=== PATIENT | female | born 1935 | race Caucasian/White ===

== ENCOUNTER 2024-03-06 14:00 | Inpatient (IN) | payer OTHER, SELFPAY ==
[2024-03-06] VITALS (12 sets, daily range): BP systolic 87–172; BP diastolic 63–140
--- NOTE | 2024-03-06 09:51 | ED.GENMED ---
History of Present Illness
General
Chief Complaint: Heart Rate Problem
Source: patient
Time Seen by Provider: 03/06/24 09:36
History of Present Illness
History of Present Illness:
88-year-old female with past medical history of atrial fibrillation, GERD, tachybradycardia syndrome presenting to the emergency department for evaluation after experiencing sudden onset palpitations that began this morning with symptoms continuing
presently and accompanied with some mild shortness of breath although patient notes that shortness of breath is now resolved. Patient states that she had been recently wearing a Holter monitor at request of her hospice superintendent, Dr. Burk and Dr. Aleman
based out of [facility], where she was told she had this tachybradycardia syndrome and that she may need a pacemaker but this would be unable to be completed until after the holiday season. Patient states she was instructed that if she
had any further symptoms she should come directly to the hospital for further evaluation. Patient denies any fevers or infectious symptoms, chest pain, diaphoresis, exertional dyspnea, orthopnea, lower extremity edema or any other concerns
presently. Patient is anticoagulated on Eliquis which she states she only started this past , did not take this medication this morning.
Past History
Past History
ED Past Medical History: Arrthythmia and GERD
ED Past Surgical History: Cholecystectomy and Gynecological
Social History
Tobacco: Non-smoker
Alcohol: None
Drug: None
Personal:
Living: with family
Review of Systems
Review of Systems
All Other Systems: ROS reviewed and negative except as documented in HPI and ROS
Phy Exam
Physical Exam
Physical Exam:
GENERAL: Alert , in no apparent distress
EYE: clear conjunctiva
NECK: Supple
ENT: o/p clr, mmm.
CARDIAC: Irregularly irregular, rate controlled, occasional PVCs seen on telemetry
LUNGS: Clear breath sounds bilaterally, no acute respiratory distress,
ABDOMEN: Soft, without focal tenderness, no r/g, no cvat
NEUROLOGICAL: Alert and oriented
SKIN: Warm and dry, skin intact.
MUSCULOSKELETAL: well perfused.
PSYCH: Normal and appropriate interaction.
Scores
Heart Failure Risk
Heart Failure Risk Score: Not Applicable
Heart Score for Chest Pain Patients
STEMI patient?: Not applicable
Withdrawal Assessment of Alcohol
Withdrawal Assessment Completed?: Not applicable
Course
Orders/Labs/Results
Orders:
Orders
03/06/24 Breakfast
NPO
Allow oral meds: Yes
Allow clear liquids: No
03/06/24 09:17
EKG [Electrocardiogram (*1)] Urgent
Reason for Study: Bradycardia / Tachycardia
EKG- Treatment ONCE
03/06/24 09:42
Basic Metabolic Panel Urgent
Complete Blood Count/With Diff Urgent
Magnesium Urgent
NT-proBNP Urgent
TSH Urgent
Troponin I Urgent
03/06/24 12:03
CeFAZolin 1 GRAM [Ancef] 1 gram 0.9% Sod Chloride 250 ml Irr [Nss Irrigation Bottle] 250 ml IRRIG CATH
CeFAZolin 2 GRAM [Ancef] 2 grams in 10 ml IV CATH
03/06/24 12:04
INT (Intravenous Needle Therapy) As Directed
Comment: #20 gauge IV catheter
Notify MD As Directed
Notify physician if: no consent on chart
OR/Surgery Prep As Directed
Type of Prep: cleanse patient with Chlorhexidine gluconate 2%
Surgical Procedure As Directed
Surgical Procedure: DC PPM - [employer]
03/06/24 13:36
Propofol [Diprivan] 60 ml .ROUTE .STK-MED
03/06/24 13:41
Admit/Transfer Patient As Directed
Co-Sign Provider:
Level of Care: Inpatient admission
Assign to:: Telemetry
Physician / Group: bettie
Diagnosis: trachybradycardia syndrome
Reason for Telemetry: Other
Other Reason for Telemetry: tachybradycardia syndrome
Date to Stop Telemetry: 03/08/24
Time to Stop Telemetry: 11:00
Reason for Hospitalization: tach bradycardia syndrome
Expected length of stay greater than two midnights?: Yes
ELOS- Estimated Length of Stay in days: 3
I certify the patient meets the requirements for IP care: Yes
PRN Pain Medication Management As Directed
May give lesser potent ordered pain med per pt: Yes
preference::
Protocol:: Medication orders for pain may be administered in a
manner that supports deferring to patient preference
when the pt is:
- Requesting an ordered lesser potent pain medication.
Least to most potent pain medications are defined
as: acetaminophen < NSAID < tramadol < opioids
(morphine, oxycodone, hydromorphone).
- Requesting a lesser dose of the same medication IF
ORDERED.
- Requesting a less intrusive route of administration
if both routes are prescribed by the provider (PO <
IV).
03/06/24 13:42
Code Status As Directed
Resuscitation Status: Full Code
03/08/24 11:00
DC Protocol for Telemetry ONCE
Abnormal Lab Results
03/06/24
09:42
MCV 80.0 L fL
(81.0-99.0)
MCH 26.3 L pg
(27.0-31.0)
MCHC 32.9 L g/dL
(33.0-37.0)
Absolute Monos (auto) 0.7 H 10^3/uL
(0.1-0.6)
Monocytes % 10.2 H %
(1.7-9.3)
Glucose 157 H mg/dl
(70-99)
03/06/24 09:42
03/06/24 09:42
Vital Signs
Initial and Last Documented VS:
Initial Vital Signs
Temp Pulse Resp BP Pulse Ox
97.8 F 83 18 172/108 97
03/06/24 09:23 03/06/24 09:23 03/06/24 09:23 03/06/24 09:23 03/06/24 09:23
Last Documented Vital Signs
Temp Pulse Resp BP Pulse Ox
97.7 F 81 18 137/76 97
03/06/24 12:55 03/06/24 12:55 03/06/24 12:01 03/06/24 11:00 03/06/24 12:55
MDM/Problems Addressed
Differential Diagnosis Includes:
Atrial fibrillation with rapid ventricular rate, tachybradycardia syndrome, thyroid disorder, electrolyte disorder, no symptoms to suggest infectious etiology
MDM/Problems Addressed:
88-year-old female presenting to the emergency department for evaluation of palpitations that began this morning. This has been an ongoing issue over the last few months. Patient reportedly was wearing a Holter monitor within the last month and
was told by her hospice superintendent that she has tachybradycardia syndrome and may need a pacemaker for treatment. States felt similarly this morning which is what prompted her to come to the ER today. EKG done in triage does show atrial fibrillation at
a rate under 110 bpm with a PVC. During my exam patient's heart rate persistently in the low 80s to low 90s but remains in A-fib. Will check labs and discuss with cardiology about potential treatment options and disposition planning.
Chronic conditions affecting care: Arrhythmia
Acute Exacerbation and/or Progression of Chronic Illness: Arrhythmia
*Pulse Oximetry
Patient hypoxic: no
*EKG
Heart Rate: 105
Rate: tachycardiac
Rhythm: a-fib
[place]: normal axis
Ischemia: non-specific ST changes
*Integrated Program Teacher Interpretation
Rate: normal
Rhythm: a-fib
*Critical Care Note
Total Time (30-74mins, 75-104mins- exclusive of procedures): Not Applicable
Data Reviewed
Review of Other/Old Records Reveals: Testing
Source: patient and records
Patient Management
Discussion with other providers: Hospitalist and Governor Assembler
Escalation/DeEscalation of care consider admission/obs:
Case discussed with cardiology who will come to the ER to evaluate patient and determine disposition planning.
Cardiology plans to take patient for today. Will admit to hospitalist service who accepts for continued evaluation and treatment.
ED Attending Note
-
Portions of this chart may have been created with voice recognition software.� Occasional wrong word or��sound alike� substitutions may have occurred due to the inherent limitations of voice recognition software.
Discharge Plan
Departure
Patient Disposition: Admit
Date of Disposition: 03/06/24
Time of Disposition: 12:50
Presentation/result/management discussed w/ accepting MD/DO: Hospitalist
Discharge Problem:
Tachy-gilberto syndrome
Prescriptions:
No Action
acetaminophen [Tylenol] 325 mg Tablet
650 mg PO DAILYPRN PRN (Reason: MILD APIN)
cyanocobalamin (vitamin B-12) 1,000 mcg Tablet
1,000 mcg PO DAILY
Theragen Tablet
1 tab PO DAILY
omeprazole 40 mg Capsule,Delayed Release(Dr/Ec)
40 mg PO DAILY
ferrous sulfate 325 mg (65 mg iron) Tablet
325 mg PO DAILY
metformin 1,000 mg Tablet
1,000 mg PO BID
digoxin 125 mcg (0.125 mg) Tablet
125 mcg PO DAILY
rosuvastatin [Crestor] 40 mg Tablet
40 mg PO HS
cholecalciferol (vitamin D3) [Vitamin D3] 25 mcg (1,000 unit) Tablet
25 mcg PO DAILY
Eliquis 2.5 mg Tablet
2.5 mg PO BID
vitamin E 268 mg (400 unit) Capsule
268 mg PO DAILY
Referrals:
Herminia Pang MD [Family Provider] -
Interventions
Interventions:
*Risk Screen - Suicide Last Done: 03/06/24 09:23
*General Assessment Last Done: 03/06/24 09:23
*Neglect/Abuse Screening Last Done: 03/06/24 09:23
*ED COVID-19 Vaccine History Last Done: 03/06/24 09:23
ED- Cardiac Assessment Last Done: 03/06/24 09:38
ED- Pulmonary Assessment Last Done: 03/06/24 09:38
Discharge Date and Time
Print Language: TAMAZIGHT
[2024-03-06 09:53] LABS: % Basophils 1.2 % (0-2); % Eosinophils 4.3 % (0-6); % Immature Granulocytes 0.4 % (0-0.5); % Lymphocytes 27.7 % (20.5-51.1); % Monocytes 10.2 % (1.7-9.3); % Neutrophils 56.2 % (42.2-75.2); Absolute Basophils 0.1 10^3/uL (0-0.2); Absolute Eosinophils 0.3 10^3/uL (0-0.7); Absolute Lymphocytes 1.9 10^3/uL (1.2-3.4); Absolute Monocytes 0.7 10^3/uL (0.1-0.6); Absolute Neutrophils 3.9 10^3/uL (1.4-6.5); Hematocrit 38.3 % (37.0-47.0); Hemoglobin 12.6 g/dL (12.0-16.0); Mean Corp Hgb Conc. 32.9 g/dL (33.0-37.0); Mean Corpuscular Hgb 26.3 pg (27.0-31.0); Mean Platelet Volume 9.1 fL (7.4-10.4); Nucleated Red Blood Cells % 0 %; Platelet Count 210 10^3/uL (130-400); Red Blood Cell Count 4.79 10^6/uL (4.20-5.40); Red Cell Dist. Width 13.9 % (11.5-14.5); White Blood Cell Count 6.9 10^3/uL (4.8-10.8)
[2024-03-06 10:09] LABS: Blood Urea Nitrogen 15 mg/dl (7-17); Calcium 9.9 mg/dl (8.4-10.2); Carbon Dioxide 28 mmol/L (22-30); Chloride 100 mmol/L (98-107); Glucose 157 mg/dl (70-99); Magnesium 1.7 mg/dl (1.6-2.3); Potassium 4.4 mmol/L (3.5-5.1); Sodium 139 mmol/L (135-145); eGFR > 60.00
[2024-03-06 10:19] LABS: NT-proBNP 236 pg/ml; Troponin I < 0.012 ng/ml
--- NOTE | 2024-03-06 11:49 | CON.CAR ---
Addendum entered and electronically signed by Charlie Luis, 03/06/24 14:16:
I saw and examined the patient.
The Electrical Lineworker's note was reviewed and I agree with the note.
Comment:
General: No Apparent Distress and Comfortable
HEENT: Normocephalic, Anicteric and Moist Mucous Membranes
Respiratory: Clear and Non Labored Respirations
Cardiac: S1/S2 and Irregular Rhythm
GI: Soft, Non Tender, Non Distended and Normal Bowel Sounds
Musculoskeletal: No Clubbing, No Cyanosis and No Edema
Skin: Warm and Dry
Neuro: AO x 3
A/P as below
Patient with symptomatic PAF with episodes of tachybrady syndrome which included a 3.3s and 4.2s pause (symptomatic). Additionally, patient with two discrete episodes of near syncope and falls associated with AF conversion to SR. Patient not on rate
controlling agents. In the setting of patient's symptomatic PAF with tachybrady syndrome, sick sinus syndrome, and symptomatic irrevesible bradycardia, she would benefit from pacemaker implant. Patient had been referred by her primary textile science technician
for pacemaker. Regarding pacemaker implant, we discussed pacemaker indications and device implant in detail. For implant there is an approximate 1:1000 risk of MA/stroke/ and a 1% risk of pneumothorax/tamponade/infection/bleeding. We also
discussed post procedure implant restrictions including positions to avoid with implant arm for first six weeks after implant as well as driving restrictions. I took time to answer all questions. I spent time discussing the procedure with the
patient and her daughters. Patient and her daughters verbalized understanding of procedure, indications, benefits, and risks. Plan to proceed with implant. Patient consented. Patient to undergo rib series XR prior to procedure in the setting of
recent fall.
Original Note:
Consultation
Consultation Request
Date/Time Consultation Performed: 03/06/24
Requesting Provider: Chu Vora PA-C
Performing Provider: Vita Benavides PA-C for Dr. Luis
Reason for Consultation: PPM
Medical History
-
Chief Complaint: tachybrady syndrome
History of Present Illness:
Patient is an 88-year-old female with past medical history of paroxysmal atrial fibrillation, hyperlipidemia, CAD with history of bare-metal stent to mid�distal LAD in 2010, prior GI bleeding, DJD who had undergone cardiac monitoring 02/14 -
02/22/2024 during which she was noted to have 2 pauses 1 being a 4.2-second conversion pause from A-fib to sinus rhythm, one 3.3 seconds during A-fib with 23% burden of paroxysmal atrial fibrillation, no high-grade AV heart block seen. Then 02/25
she had a presyncopal event and fall. She was seen by Dr. Bain as EP consultation 03/04 and felt to have tachybradycardia syndrome and was referred to ER here for pacemaker placement. Patient without subsequent presyncopal or syncopal events
since 02/25. She does have some continued left rib pain from her recent fall, however feels as though this is likely improving, although still does cause her discomfort at times. She does report feeling poorly in atrial fibrillation with decreased
stamina, increased irritability, and dyspnea on exertion. She denies history of cardioversion, antiarrhythmic drug therapy, or ablation for her atrial fibrillation. She denies history of known thyroid disease. She last ate last evening, and last
dose of Eliquis was 12/25 AM.
PMH:
Sick sinus syndrome/tachybradycardia syndrome
4.2-second conversion pause on cardiac monitoring 02/2024
Presyncopal event/fall 02/26/2024
Paroxysmal atrial fibrillation
Hyperlipidemia
CAD status post BMS to mid�distal LAD in 2010
Prior GI bleeding
DJD
Remote former smoker
Past Medical History
Past Medical History: Other (in HPI)
Social History
Tobacco: Former Smoker
Alcohol: None
Living: Alone
Family History
Family History: Other (daughter passed at 61 of heart attack)
Allergies / Home Medications
Allergy/AdvReac Type Severity Reaction Status Date / Time
codeine Allergy Shortness Verified 03/06/24 09:27
of Breath
�Medication �Instructions �Recorded �Confirmed �Type
acetaminophen 325 mg tablet 650 mg PO DAILYPRN PRN MILD APIN 03/06/24 03/06/24 History
(Tylenol)
apixaban 2.5 mg tablet (Eliquis) 2.5 mg PO BID 03/06/24 03/06/24 History
cholecalciferol (vitamin D3) 25 25 mcg PO DAILY 03/06/24 03/06/24 History
mcg (1,000 unit) tablet (Vitamin
D3)
cyanocobalamin (vitamin B-12) 1,000 mcg PO DAILY 03/06/24 03/06/24 History
1,000 mcg tablet
digoxin 125 mcg (0.125 mg) tablet 125 mcg PO DAILY 03/06/24 03/06/24 History
ferrous sulfate 325 mg (65 mg 325 mg PO DAILY 03/06/24 03/06/24 History
iron) tablet
metformin 1,000 mg tablet 1,000 mg PO BID 03/06/24 03/06/24 History
omeprazole 40 mg capsule,delayed 40 mg PO DAILY 03/06/24 03/06/24 History
release
rosuvastatin 40 mg tablet (Crestor) 40 mg PO HS 03/06/24 03/06/24 History
therapeutic multivitamin 1 tab PO DAILY 03/06/24 03/06/24 History
vitamin E 268 mg (400 unit) capsule 268 mg PO DAILY 03/06/24 03/06/24 History
Review of Systems
-
History Source: Patient and Family
All other systems: Negative unless noted
Physical Exam
Vital Signs
Temp Pulse Resp BP Pulse Ox
97.8 F 86 23 137/76 97
03/06/24 09:23 03/06/24 11:00 03/06/24 11:00 03/06/24 11:00 03/06/24 09:23
Lab Results
03/06/24 09:42
03/06/24 09:42
Troponin I < 0.012 ng/ml 03/06/24 09:42
Bwh-E-Cncdukozifq Pept 236 pg/ml 03/06/24 09:42
Physical Exam
General: No Apparent Distress and Comfortable
HEENT: Normocephalic, Anicteric and Moist Mucous Membranes
Respiratory: Clear and Non Labored Respirations
Cardiac: S1/S2 and Irregular Rhythm
GI: Soft, Non Tender, Non Distended and Normal Bowel Sounds
Musculoskeletal: No Clubbing, No Cyanosis and No Edema
Skin: Warm and Dry
Neuro: AO x 3
Impression / Plan
-
Primary Bench Shear Operator: Dr. Burk
Assessment:
Symptomatic sick sinus syndrome/tachybradycardia syndrome
4.2-second conversion pause on cardiac monitoring 02/2024
Presyncopal event/fall 02/26/2024
Paroxysmal atrial fibrillation
Hyperlipidemia
CAD status post BMS to mid�distal LAD in 2010
Prior GI bleeding
DJD
Remote former smoker
ECHO 02/29/24: EF 60%, grade 1 diastolic dysfunction, no significant valvular disease, mildly atherosclerotic aortic root
Plan:
-Patient presents with evidence of symptomatic sick sinus syndrome/tachybradycardia syndrome with paroxysmal A-fib, as well as 4.2-second conversion pause on cardiac monitoring, as well as subsequent presyncopal event/fall.
-N.p.o. for pacemaker today. Procedure explained to patient and she is agreeable to proceed
-Last dose of Eliquis confirmed to be 12/25 AM. Hemoglobin stable at 12.6
-Recent echo as above
-Check TSH
-Currently in rate controlled atrial fibrillation on tele in ER, as well as by admission EKG reviewed by me. She has been on digoxin which was stopped earlier this week in the setting of recent above events. Would consider for rate control versus
rhythm control status post pacemaker placement
-Resume Eliquis postprocedure when able
-She does report some ongoing rib pain in the setting of her fall. Would consider rib series x-ray, however patient does state pain appears to be improving.
-Discussed with patient and family at bedside
Data Reviewed
-
EKG: Tracing Personally Visualized and interpreted
Medical Tests (Nuc Med, Echo etc): Report Reviewed by me
Labs: Labs Reviewed by me
Old Records: Reviewed
--- NOTE | 2024-03-06 13:20 | HPS.HSE ---
Family Physician
-
Family Physician: Herminia Pang
Chief Complaint
-
palpitation and sob
History of Present Illness
88-year-old female with past medical history of atrial fibrillation, GERD, tachybradycardia syndrome presenting to the emergency department for evaluation of palpitations associated with sob since las night. Patient states that she had been
recently wearing a Holter monitor at request of her grab jack man, Dr. Burk and Dr. Aleman based out of [facility], where she was told she had this tachybradycardia syndrome, she was also noted to have couple pauses and that she may need
a pacemaker but this would be unable to be completed until after the holiday season. her digoxin has been on hold. patient had a fall couple weeks ago due to lightheadedness and she fell on her left side. since then she has left sided pain from
underneath her breast to the left lower back. pain is actually getting better. all workup at that time was negative for any acute fracture. denied fever, chills, congestion, cough. denied chest pain. denied abdominal pain,n,v,d. denied dysuria or
hematuria.
patient was evaluated by cardiology. plant to get pacemaker today.
Medical History
Past Medical History
Past Medical History: Reports Other
Additional Past Medical History:
Hyperlipidemia
A-fib,
Hypertension, coronary artery disease
GERD iron deficiency anemia
Type 2 diabetes hiatal hernia
Past Surgical History: Reports Other
Additional Past Surgical History:
Total knee replacement
Coronary artery stent
Cataract surgery
Social History
Tobacco: Non-smoker
Alcohol: Occasional
Drug: None
Personal: Single
Living: Alone
Family History
Family History: Not pertinent
Allergies / Home Medications
Allergies reflects when Allergies were last updated in [facility].
Home Medications with original date entered in [facility]
Allergy/Medication List:
Allergies
Allergy/AdvReac Type Severity Reaction Status Date / Time
codeine Allergy Shortness Verified 03/06/24 09:27
of Breath
Home Medications
acetaminophen 325 mg tablet (Tylenol) 650 mg PO DAILYPRN PRN MILD APIN 03/06/24
apixaban 2.5 mg tablet (Eliquis) 2.5 mg PO BID 03/06/24
cholecalciferol (vitamin D3) 25 mcg (1,000 unit) tablet (Vitamin D3) 25 mcg PO DAILY 03/06/24
cyanocobalamin (vitamin B-12) 1,000 mcg tablet 1,000 mcg PO DAILY 03/06/24
digoxin 125 mcg (0.125 mg) tablet 125 mcg PO DAILY 03/06/24
ferrous sulfate 325 mg (65 mg iron) tablet 325 mg PO DAILY 03/06/24
metformin 1,000 mg tablet 1,000 mg PO BID 03/06/24
omeprazole 40 mg capsule,delayed release 40 mg PO DAILY 03/06/24
rosuvastatin 40 mg tablet (Crestor) 40 mg PO HS 03/06/24
therapeutic multivitamin 1 tab PO DAILY 03/06/24
vitamin E 268 mg (400 unit) capsule 268 mg PO DAILY 03/06/24
Review of Systems
-
Constitutional: Reports No Symptoms
EENT: Reports No Symptoms
Respiratory: Reports No Symptoms and Trouble Breathing
Cardiac: Reports No Symptoms
Abdomen/GI: Reports No Symptoms
: Reports No Symptoms
Musculoskeletal: Reports No Symptoms
Skin: Reports No Symptoms
Neurological: Reports No Symptoms
Endocrine: Reports No Symptoms
Hematologic/Lymphatic: Reports No Symptoms
Psych: Reports No Symptoms
Physical Exam
Vital Signs
Vital Signs
Temp Pulse Resp BP Pulse Ox
97.7 F 81 18 137/76 97
03/06/24 12:55 03/06/24 12:55 03/06/24 12:01 03/06/24 11:00 03/06/24 12:55
Physical Exam
General: Well Developed, Well Nourished and No Apparent Distress
HEENT: NormoCephalic, Moist mucous membranes and Atraumatic
Respiratory: Clear
Cardiac: S1/S2 and Regular Rhythm; No Murmur or Rub
GI: Soft, Non Tender, Non Distended and Normal Bowel Sounds; No Organomegaly
Rectal: Deferred by Provider
Musculoskeletal: No Clubbing, No Cyanosis and No Edema
Skin: No Rash
Neuro: AO x 3 and Nonfocal/grossly intact
Psych: Calm
Laboratory Results
-
03/06/24 09:42
03/06/24 09:42
Laboratory Results
Troponin I < 0.012 ng/ml 03/06/24 09:42
Data Reviewed
-
Lab Data: Labs Reviewed by me
Impression/Plan
-
# Tachybradycardia syndrome
#Paroxysmal atrial fibrillation
-For pacemaker today
-Cardiology consulted
-EKG with A-fib with RVR with PVCs
-Hold Eliquis
-Hold digoxin
#left sided chest/ribs pain
-will obtain x ray with ribs
# Iron deficiency anemia
-Ferrous sulfate continued
# Type 2 diabetes
-Sliding scale
-Carb controlled diet when able to eat
-Hold metformin
# GERD
-PPI continued
#Hyperlipidemia
-Crestor continued
#CAD status post BMS to mid�distal LAD in 2010
# DVT prophylaxis
-SCD
#CODE STATUS
-Full code
--- NOTE | 2024-03-06 14:11 | W.PN.UPDATE ---
Update Note
Progress Note Update
This is an addendum to the H&P written by Nia Argueta on 03/06/2024. Patient seen and examined independently with OYSTER BUYER.
88-year-old female past medical history of paroxysmal atrial fibrillation, GERD, presenting with recent 2 episodes of falls without syncope (for giving and on 02/24) with subsequent Holter monitor investigation with discovery of
tachybradycardia syndrome. Digoxin was subsequently held. She has been having intermittent palpitations and dizziness. Outpatient pacemaker was recommended.
Patient with left rib pain after the fall.
Patient asymptomatic currently. Hemodynamically normal. Check chest x-ray with left rib to rule out fracture given pain. NPO for pacemaker today. Hold Eliquis, continue to hold digoxin. Hold metformin.
--- NOTE | 2024-03-06 14:52 | ITS.CL.PACE ---
Flexo Press Operator - Pacemaker Implant
Pacemaker Implant
Procedure Report:
Primary Care Doctor: Herminia Pang MD
Primary Vp Legal Affairs: Ronald Burk MD
Procedure Date: 03/06/2024
Name of procedure:
1. Placement of a dual-chamber pacemaker with left bundle area pacing lead for conduction system pacing
2. Subclavian venography
History:
1. Patient is a very pleasant 88-year-old female with a past medical history of paroxysmal atrial fibrillation, hypertension, CAD, hypercholesterolemia, anemia, diabetes mellitus type 2, GERD, sick sinus syndrome, tachybradycardia syndrome,
symptomatic bradycardia, near syncope/falls associated with sick sinus syndrome and irreversible bradycardia.
2. Please refer to H&P for complete history.
Indication:
Symptomatic irreversible bradycardia
Tachybrady syndrome with pauses
Near-syncope syncope/falls
Sick sinus syndrome
Methods:
After informed consent was obtained, the patient was brought to the EP laboratory in a postabsorptive, nonsedated state. Peripheral IV access was established. Prophylactic antibiotics were administered prior to incision. Continuous ECG, blood
pressure, and pulse oximetry were initiated. Cardioversion patch electrodes were placed on the patient's chest and back. A grounding patch was applied to the skin. Sedation was administered by anesthesia services.
In order to define the extrathoracic portion of the subclavian vein and exclude significant venous obstruction or anomalous anatomy, subclavian venography was performed prior to the procedure. Using the patient's left peripheral IV, contrast was
injected and images were recorded. The left subclavian vein and SVC were found to be widely patent.
The left chest was prepared and draped in a sterile fashion. A time-out was performed. Local anesthesia was injected in the subcutaneous tissue in the infraclavicular area. An incision was made medial to the deltopectoral groove. The subcutaneous
tissue was dissected the level of the prepectoral fascia. A subcutaneous pocket was created. Under fluoroscopic guidance and with the assistance of the images from the venogram, 2 separate venipunctures were made using micropuncture and modified
Seldinger technique. These were performed in the extrathoracic portion of the subclavian vein. Guidewires were passed and two peel-away sheaths were placed, and used to advance leads into the circulation.
Fluoroscopy was used to determine likely anatomic site for left bundle branch pacing. The Medtronic C315 sheath was used to deliver the Medtronic 3830 Selectsecure pacing lead with the helix exposed just exposed from the sheath tip during continuous
monitoring when pacemapping the septum during gentle clockwise rotation to obtain a paced QRS morphology of a W pattern in lead V1. Once the suspected optimal site was identified, lead deployment was performed with several rapid rotations as paced
QRS morphology was intermittently monitored until a paced QRS complex in lead V1 demonstrated development of an R wave (qR or rSR). Unipolar pacing impedance dropped by approximately 100-200 ohms suggesting it had reached the left ventricular
subendocardial. Stable VEgm injury current is present throughout lead position and at end of case. Final unipolar pacing impedance is 1200 Ohms. Unipolar pacing threshold is stable at 0.50 V @ 0.4 ms. The patient had pre-existing narrow QRS. Final
conduction system paced QRS complex duration is 90 ms, LVAT is 63 ms, and peak V5 -> peak V1 timing is 34 ms. The C315 sheath was slit under fluoroscopy ensuring lead position and stability.
Next, the right atrial lead was positioned in the right atrial appendage. Adequate sensing and pacing parameters were found, and no diaphragmatic stimulation was seen with high-output pacing. Both sheaths were split, and the leads were secured to
the fascia with Ethibond ties.
The pocket was flushed with antibiotic solution and hemostasis was assured. The generator was connected to the leads and placed inside the pocket. The device was sutured to the fascia. Antibiotic envelope was used. Floseal was applied. The wound
was closed with 3 running layers of absorbable suture, and steri-strips were applied. Dressing applied over steri-strips in standard fashion.
Following the procedure, the patient was taken to the recovery area in stable condition. A chest x-ray to be obtained post procedure as routine.
Lead parameters and device programming:
- RA Lead (Medtronic, Model 5076, # [id number]): Sensing 6.6 mV, Pacing threshold 1.0 V at 0.4 ms, Imp 418 ohm
- RV Lead (Medtronic, Model 3830, #[id number]): Sensing 20.0 mV, Pacing threshold 0.75 V at 0.4 ms, Imp 741 Ohm
- Device: Medtronic, Model W1 DR 01 pacemaker (# [id number]), programmed AAIR�DDDR, mode switch on, lower rate 60, upper tracking rate 120 ppm
Conclusions:
1. Successful placement of a dual-chamber pacemaker with conduction system pacing (LBBAP)
2. Subclavian venography
Recommendations:
1. Admit
2. chest x-ray Goldie maza express in a.m.
3. IV antibiotics while the patient is admitted.
4. OK to resume home medications as indicated; plan to start oral anticoagulation 03/07/2024 PM if site/patient stable in a.m.
5. Pressure dressing to be removed in AM, aquacell to remain until wound check
6. Follow-up will be arranged in the office in 7-10 days post-discharge; patient has follow-up with primary mental health case manager, Dr Ronald Burk, on 03/14/2023 where incision check will be performed
Charlie Luis DO, FAC
Clinical Cardiac Polarity Tester
cc: Ronald Burk MD; Herminia Pang MD
[2024-03-06 18:26] LABS: Glucose - Point of Care 123 mg/dl (70-99)
[2024-03-06] MEDS: TYLENOL 650 MG PO ×2 (18:37→22:55)
--- NOTE | 2024-03-06 19:23 | PTCARENOTE ---
Addendum entered by Maisha Singh RN 03/06/24 19:41:
Tylenol po was given for LCW pain.
Original Note:
received patient from laborer operator,had LCW pacemaker insertion, DDDR 60 - 120, Acuseal, pressure dsg. and immobilizer intact. patient is very drowsy but can answer questions appropriately,3 daughters are at bedside. Monitor placed, NSR,(laborer operator didnot
do hand off report), VSS, Dr. drake came to bedside to talk with patient. oriented to room and surroundings.
--- NOTE | 2024-03-06 21:00 | PTCARENOTE ---
Received patient at change of shift. Patient awake, drowsy (from procedure), and oriented sitting in bed, visiting with family. Left chest wall site clean, dry, and intact-- no hematoma or ecchymosis. Sling on. BP 148/70, NSR 70s-80s, 97% on 2 L.
Discussed plan of care for evening. Patient verbalized understanding and agreed to call care team when wanting to get out of bed. Call miller within reach.
[2024-03-06 21:41] LABS: Glucose - Point of Care 248 mg/dl (70-99)
[2024-03-06] MEDS: ANCEF 5 IV (22:14)
[2024-03-06] MEDS: CRESTOR 40 MG PO (22:14)
[2024-03-07 03:46] VITALS: BP 135/66
[2024-03-07 04:52] LABS: Hematocrit 37.4 % (37.0-47.0); Hemoglobin 12.3 g/dL (12.0-16.0); Mean Corp Hgb Conc. 32.9 g/dL (33.0-37.0); Mean Corpuscular Hgb 26.4 pg (27.0-31.0); Mean Corpuscular Volume 80.3 fL (81.0-99.0); Mean Platelet Volume 10.3 fL (7.4-10.4); Platelet Count 206 10^3/uL (130-400); Red Blood Cell Count 4.66 10^6/uL (4.20-5.40)
[2024-03-07 05:15] LABS: Blood Urea Nitrogen 14 mg/dl (7-17); Calcium 9.5 mg/dl (8.4-10.2); Carbon Dioxide 26 mmol/L (22-30); Chloride 104 mmol/L (98-107); Estimated Creatinine Clearance 44 ml/min; Glucose 126 mg/dl (70-99); Magnesium 1.7 mg/dl (1.6-2.3); Potassium 3.9 mmol/L (3.5-5.1); Sodium 140 mmol/L (135-145); eGFR > 60.00
[2024-03-07] MEDS: ANCEF 5 IV (05:54)
--- NOTE | 2024-03-07 07:48 | W.PN.CARDCBS ---
Addendum entered and electronically signed by Charlie Luis DO 03/07/24 12:19:
I saw and examined the patient.
The Shear Tender's note was reviewed and I agree with the note.
Comment:
GEN: No distress, awake but groggy, oriented x3
HEENT: supple, anicteric, mmm, eomi
LUNGS: CTA B/L, no wheezes/rales
CV: Reg, S1/S2, no murmur
ABD: soft, BS+, NT/ND
EXT: No cyanosis, clubbing, edema
NEURO: Gross non-focal
SKIN: Warm, pink, dry. No rash. L chest site with mild juju-incisional swelling and tenderness to palpation, but soft
Telemetry demonstrates sinus rhythm, occasionally paced V sense
Chest x-ray no evidence of pneumothorax, stable dual-chamber pacemaker
Currently expressed demonstrating appropriate device function stable pacing threshold, sensing, impedance values, and battery life
A/P as below
Patient doing well status post dual-chamber pacemaker with conduction system pacing
Start metoprolol succinate 25 mg daily
Start Eliquis 03/09/2024 in a.m.
Patient have follow-up with primary machine bobbin winder Dr. Ronald Burk as scheduled (has incision check 03/14/2023 with him)
Ambulate
Stable for DC from CV standpoint later today
Original Note:
Today's Communication / Plan
-
s/p PPM 03/06
ambulate
toprol 25mg daily
resume eliquis 03/09 AM
OP cardiac follow up arranged
ok for DC to home later today
Impression / Plan
-
Primary Protective Service Specialist: Dr. Burk
Assessment:
Symptomatic sick sinus syndrome/tachybradycardia syndrome
4.2-second conversion pause on cardiac monitoring 02/2024
Presyncopal event/fall 02/26/2024
s/p Medtronic DC PPM 03/06/24
Paroxysmal atrial fibrillation
Hyperlipidemia
CAD status post BMS to mid�distal LAD in 2010
Prior GI bleeding
DJD
Remote former smoker
ECHO 02/29/24: EF 60%, grade 1 diastolic dysfunction, no significant valvular disease, mildly atherosclerotic aortic root
Plan:
-Patient presented with evidence of symptomatic sick sinus syndrome/tachybradycardia syndrome with paroxysmal A-fib, as well as 4.2-second conversion pause on cardiac monitoring, as well as subsequent presyncopal event/fall on 02/25. Rib series
without evidence of rib fracture
-s/p Medtronic DC PPM placement 03/06/24
-with some mild juju-incisional swelling and tenderness, will follow. continue pain mgmt
-Hemoglobin stable at 12.3. plan to resume eliquis 03/09 AM
-Recent echo as above
-TSH WNL
-currently in SR on review of tele and EKG 03/07. toprol was started post PPM placement.
-ambulate patient after breakfast
-ok for DC to home later today from cardiac standpoint
-OP cardiac follow up arranged
Progress Note - Protective Service Specialist
Subjective
Date of Service: March 07, 2024
reports some juju incisional tenderness
Objective
Labs:
03/07/24 04:10
03/07/24 04:09
Labs
Hgb 12.3 g/dL (12.0-16.0) 03/07/24 04:10
Hct 37.4 % (37.0-47.0) 03/07/24 04:10
Plt Count 206 10^3/uL (130-400) 03/07/24 04:10
Sodium 140 mmol/L (135-145) 03/07/24 04:09
Potassium 3.9 mmol/L (3.5-5.1) 03/07/24 04:09
BUN 14 mg/dl (7-17) 03/07/24 04:09
Creatinine 0.7 mg/dL (0.6-1.0) 03/07/24 04:09
Glucose 126 mg/dl (70-99) H 03/07/24 04:09
Troponins
03/06/24
09:42
Troponin I < 0.012
Vital Signs and I&O:
Vital Signs
Temp Pulse Resp BP Pulse Ox
97.8 F 65 18 135/66 97
03/07/24 03:48 03/07/24 04:30 03/07/24 03:48 03/07/24 03:46 03/07/24 03:48
Vital Signs
Temp Pulse Resp BP Pulse Ox
97.8 F 65 18 135/66 97
03/07/24 03:48 03/07/24 04:30 03/07/24 03:48 03/07/24 03:46 03/07/24 03:48
Physical Exam
Physical Exam
GEN: No distress, awake but groggy, oriented x3
HEENT: supple, anicteric, mmm, eomi
LUNGS: CTA B/L, no wheezes/rales
CV: Reg, S1/S2, no murmur
ABD: soft, BS+, NT/ND
EXT: No cyanosis, clubbing, edema
NEURO: Gross non-focal
SKIN: Warm, pink, dry. No rash. L chest site with mild juju-incisional swelling and tenderness to palpation, but soft
[2024-03-07 07:57] VITALS: BP 122/73
[2024-03-07 08:37] LABS: Glucose - Point of Care 130 mg/dl (70-99)
[2024-03-07] MEDS: PROTONIX 40 MG PO (09:23)
[2024-03-07] MEDS: FEOSOL 325 MG PO (09:24)
[2024-03-07] MEDS: TOPROL XL 25 MG PO (09:24)
[2024-03-07] MEDS: TYLENOL 650 MG PO ×2 (09:30→13:57)
--- NOTE | 2024-03-07 10:42 | CM ---
Reviewed chart. Met with Mrs. Rivers to review discharge plans. She states prior to admission she resides alone in a first floor apartment with three steps to enter and then four steps to get to her apartment. She state prior to admission she was
independent with ambulation and adls. She states she does not have any DME in the home. She states she has a prescription plan with her insurance and currently uses [facility], but she is in the process of switching to mail order. She states her
daughters reside nearby and they will be checking on her. Medical work-up in progress. The discharge plan is to return home with family support when medically stable.
[2024-03-07 10:49] LABS: Glycohemoglobin (HgbA1c) 7.6 % (4.0-5.6)
[2024-03-07 11:29] VITALS: BP 124/104
[2024-03-07 11:31] VITALS: BP 116/57
[2024-03-07 13:04] LABS: Glucose - Point of Care 125 mg/dl (70-99)
--- NOTE | 2024-03-07 13:11 | W.PN.HOSP.TC ---
Today's Communication/Plan
-
Discharge
Assessment / Plan
Assessment / Plan
Gen-AAOx3, NAD
HEENT-NC, AT, anicteric, clear oral mm
Neck-supple
CV-reg, no M, +S1/S2
Lungs-clear B/L
Abd-soft, NT, ND
Ext-no edema
Musculoskeletal-no cyanosis, clubbing
Skin-warm and dry, mild bruising of the left posterior arm
Neuro-grossly non-focal
Psych-calm, cooperative
Sick sinus syndrome -symptomatic. Stable after permanent pacemaker placement 03/06. No pneumothorax on chest x-ray. Metoprolol started by cardiology.
Cardiology recommends discharge home later today with outpatient follow-up.
Did have a syncopal event on February 25. Sustained trauma to the left side of her chest. No rib fractures noted on x-ray.
Paroxysmal atrial fibrillation -resume Eliquis on 03/09 as per cardiology.
DM 2 without hyperglycemia -hemoglobin A1c 7.6%. Glucose 126 this morning. Resume metformin on discharge.
GERD
Essential hypertension -stable.
CAD -history of bare-metal stent to the mid to distal LAD in 2010.
History of GI bleeding
Hyperlipidemia -rosuvastatin.
Full code
Dispo -discharge later today. Outpatient follow-up.
32 minutes spent in discharge process.
Anticipated Discharge: Today
Subjective/Interval History
-
Date of Service: March 07, 2024
Patient seen and examined. Complaining of left sided rib pain.
Objective Data
-
Labs:
Laboratory Results
03/07/24 03/07/24
04:09 04:10
WBC 8.0
Hgb 12.3
Hct 37.4
Plt Count 206
Sodium 140
Potassium 3.9
Chloride 104
Carbon Dioxide 26
BUN 14
Creatinine 0.7
Glucose 126 H
Calcium 9.5
Vital Signs:
Vital Signs
Temp Pulse Resp BP Pulse Ox
98.1 F 71 18 116/57 95
03/07/24 11:28 03/07/24 12:00 03/07/24 11:28 03/07/24 11:31 03/07/24 11:28
Review of Systems
-
History Source: Patient
All other systems: Reviewed and negative
--- NOTE | 2024-03-07 13:26 | W.DS.TRANS ---
DC Summary - Active Directory Administrator
-
Discharge Instructions:
Discharge Diagnosis/Procedures Sick sinus syndrome, pacemaker implant
Diet Low Cholesterol,Diabetic, Carb Controlled
Activity Other activity
Additional Activity See device sheet
Driving Restrictions No driving for 1 week
Bathing Restrictions OK to Shower
Instructions:
Stand-Alone Forms: DC Inst - Implanted Device
Changes to Home Medications: Yes
Discharge Medications:
DC Medications w/original date entered in [facility]
acetaminophen 325 mg tablet (Tylenol) 650 mg PO DAILYPRN PRN MILD APIN 03/06/24
apixaban 2.5 mg tablet (Eliquis) 2.5 mg PO BID 03/06/24
cholecalciferol (vitamin D3) 25 mcg (1,000 unit) tablet (Vitamin D3) 25 mcg PO DAILY 03/06/24
cyanocobalamin (vitamin B-12) 1,000 mcg tablet 1,000 mcg PO DAILY 03/06/24
ferrous sulfate 325 mg (65 mg iron) tablet 325 mg PO DAILY 03/06/24
metformin 1,000 mg tablet 1,000 mg PO BID 03/06/24
omeprazole 40 mg capsule,delayed release 40 mg PO DAILY 03/06/24
rosuvastatin 40 mg tablet (Crestor) 40 mg PO HS 03/06/24
therapeutic multivitamin 1 tab PO DAILY 03/06/24
vitamin E 268 mg (400 unit) capsule 268 mg PO DAILY 03/06/24
metoprolol succinate 25 mg tablet,extended release 24 hr 25 mg PO DAILY #30 tabs 03/07/24
Home Medication Changes
Hold digoxin until you speak with your civil project engineer.
Pending Results: No
--- NOTE | 2024-03-07 16:07 | PTCARENOTE ---
Pt seen by Michael and Janelle and Vita Benavides CERAMIST. Telemetry and IV device removed. Discharge instructions reviewed with pt and her daughter regarding activity and driving restrictions, wound care, medications and their possible side effects,
reporting cares and concerns and follow up appts. Good understanding verbalized. Pt escorted out via wheelchair wearing immobilizer and was discharged to home.
== END 2024-03-07 14:40 | disposition home or self-care (01) | DRG 244 ==
LOC: IVU 14:00
PROVIDERS: Nurse Practitioner Adult Health; Physician Assistant Medical; Registered Nurse; ADMITTING PHYSICIAN Hospitalist; ATTENDING PHYSICIAN Hospitalist; EMERGENCY PHYSICIAN Emergency Medicine; FAMILY PHYSICIAN Student in an Organized Health Care Education/Training Program; OTHER PHYSICIAN Internal Medicine Cardiovascular Disease
PROC: 0JH606Z Insertion of Pacemaker, Dual Chamber into Chest Subcutaneous Tissue and Fascia, Open Approach (ICD-10-PCS; 2024-03-06)
PROC: 02HK3JZ Insertion of Pacemaker Lead into Right Ventricle, Percutaneous Approach (ICD-10-PCS; 2024-03-06)
PROC: 02H63JZ Insertion of Pacemaker Lead into Right Atrium, Percutaneous Approach (ICD-10-PCS; 2024-03-06)
DX: I49.5 Sick sinus syndrome (principal); I48.0 Paroxysmal atrial fibrillation; K21.9 Gastro-esophageal reflux disease without esophagitis; E11.9 Type 2 diabetes mellitus without complications; I10 Essential (primary) hypertension; I25.10 Atherosclerotic heart disease of native coronary artery without angina pectoris; E78.00 Pure hypercholesterolemia, unspecified; D50.9 Iron deficiency anemia, unspecified; Z88.5 Allergy status to narcotic agent; Z79.01 Long term (current) use of anticoagulants; Z79.84 Long term (current) use of oral hypoglycemic drugs; Z95.5 Presence of coronary angioplasty implant and graft; Z87.891 Personal history of nicotine dependence; Z96.659 Presence of unspecified artificial knee joint
CPT/HCPCS: 33208; 71045; 71101; 80048; 82962; 83036; 83735; 83880; 84443; 84484; 85025; 85027; 93005; 99285; C1769; C1892

== ENCOUNTER 2024-12-29 08:25 | Day surgery (SDC) | payer OTHER, SELFPAY ==
[2024-12-17 12:34] VITALS: BMI 29.3
[2024-12-17 13:08] LABS: Hematocrit 35.6 % (37.0-47.0); Hemoglobin 11.2 g/dL (12.0-16.0); Mean Corp Hgb Conc. 31.5 g/dL (33.0-37.0); Mean Corpuscular Volume 83.6 fL (81.0-99.0); Nucleated Red Blood Cells % 0 %; Platelet Count 226 10^3/uL (130-400); Red Cell Dist. Width 14.0 % (11.5-14.5)
[2024-12-17 13:11] LABS: INR 1.14; PT 15.2 Sec (11.4-14.6)
[2024-12-17 13:13] LABS: ALT (SGPT) 20 U/L (0-35); AST (SGOT) 27 U/L (14-36); Albumin 4.5 g/dl (3.5-5.0); Alkaline Phosphatase 81 U/L (38-126); Blood Urea Nitrogen 19 mg/dl (7-17); Calcium 9.6 mg/dl (8.4-10.2); Carbon Dioxide 30 mmol/L (22-30); Chloride 104 mmol/L (98-107); Estimated Creatinine Clearance 33 ml/min; Glucose 103 mg/dl (70-99); Magnesium 1.9 mg/dl (1.6-2.3); Potassium 4.5 mmol/L (3.5-5.1); Sodium 140 mmol/L (135-145); Total Protein 7.8 g/dl (6.3-8.2); eGFR 54.87
[2024-12-29 09:02] VITALS: BP 134/68
[2024-12-29 09:09] LABS: Glucose - Point of Care 121 mg/dl (70-99)
[2024-12-29 09:14] VITALS: BMI 25.8
== END 2024-12-29 11:00 | disposition home or self-care (01) ==
LOC: CATH 08:25
PROVIDERS: ATTENDING PHYSICIAN Internal Medicine Cardiovascular Disease; FAMILY PHYSICIAN Student in an Organized Health Care Education/Training Program; OTHER PHYSICIAN Internal Medicine Cardiovascular Disease
DX: I48.0 Paroxysmal atrial fibrillation (principal); Z53.09 Procedure and treatment not carried out because of other contraindication
CPT/HCPCS: 82962; 36415; 75572; 80053; 83735; 85025; 85610; 86850; 86900; 86901; 93005; Q9967

== ENCOUNTER 2025-02-27 07:01 | Day surgery (SDC) | payer OTHER, SELFPAY ==
[2025-02-10 10:59] VITALS: BMI 29.6
[2025-02-10 12:13] LABS: Hematocrit 38.2 % (37.0-47.0); Hemoglobin 12.6 g/dL (12.0-16.0); Mean Corp Hgb Conc. 33.0 g/dL (33.0-37.0); Mean Corpuscular Volume 84.0 fL (81.0-99.0); Nucleated Red Blood Cells % 0 %; Platelet Count 236 10^3/uL (130-400); Red Cell Dist. Width 13.7 % (11.5-14.5)
[2025-02-10 12:25] LABS: INR 1.14; PT 14.7 Sec (11.4-14.6)
[2025-02-10 12:26] LABS: ALT (SGPT) 20 U/L (0-35); AST (SGOT) 28 U/L (14-36); Albumin 4.4 g/dl (3.5-5.0); Alkaline Phosphatase 85 U/L (38-126); Blood Urea Nitrogen 12 mg/dl (7-17); Calcium 9.6 mg/dl (8.4-10.2); Carbon Dioxide 31 mmol/L (22-30); Chloride 101 mmol/L (98-107); Estimated Creatinine Clearance 35 ml/min; Glucose 175 mg/dl (70-99); Magnesium 1.8 mg/dl (1.6-2.3); Potassium 3.8 mmol/L (3.5-5.1); Sodium 138 mmol/L (135-145); Total Protein 7.7 g/dl (6.3-8.2); eGFR > 60.00
--- NOTE | 2025-02-26 10:50 | W.SUR.PREOP ---
Pre-Operative Surgical Note
-
As stated in H&P, the patient was recently diagnosed with an E. Coli UTI and was started on 1 weeks worth of antibiotic therapy per PCP.
Initial symptoms were foul swelling urine and increased frequency.
Foul smell as resolved. Frequency has improved.
She denies urinary burning and pelvic discomfort.
Last dose of antibiotic is scheduled for later today.
Given all of this, the patient can safely proceed as planned with her procedure tomorrow.
[2025-02-27] VITALS (14 sets, daily range): BP systolic 124–147; BP diastolic 49–85; BMI 29.6
[2025-02-27 08:36] LABS: Glucose - Point of Care 118 mg/dl (70-99)
--- NOTE | 2025-02-27 11:38 | ITS.CL.ABL ---
Music Video Producer - Ablation
Ablation
Procedure Report:
Primary Community Service Patrol Officer: Dr Ronald Burk
Procedure Date: 02/27/2025
Patient History:
Patient is a pleasant 89-year-old female with a past medical history significant for CAD with PCI in 2010, sick sinus syndrome status post dual-chamber pacemaker 02/2024, symptomatic persistent atrial fibrillation, hypertension, hyperlipidemia,
diabetes mellitus type 2, arthritis.
See H&P for complete details.
Indication:
Symptomatic persistent atrial fibrillation
Intolerance to antiarrhythmic medical therapy
Arrhythmia Specific History:
Prior Medical Therapies for Rate and Rhythm Control:
X Beta-janelle
X Calcium channel-janelle
X Amiodarone
[ ] Dronederone
[ ] Sotalol
[ ] Flecainide
[ ] Dofetilide
[ ] Options limited by bradycardia
[ ] Options limited by comorbid renal disease
Prior Procedural Therapies for AF/AFL:
[ ] Cardioversion
[ ] Pulmonary Vein Isolation
[ ] Posterior Wall Isolation
[ ] Additional lines (Specify)
[ ] Surgical Sellers-MAZE or PVI (Specify)
Procedure Performed:
X AF ablation procedure (07247) -- includes LA/CS pacing, trans-septal, 3D mapping, + ICE
[ ] +IV drug (05682)
[ ] +Other Arrhythmia (95732)
X +Other AF Line/ablation (87514) x2 -- floor line, roof line, posterior wall isolation
Risks and expected recovery has been explained in detail. Alternative options have been explored, and in a shared-decision making fashion we have decided that this was the most appropriate procedure.
Method
NPO status confirmed. Grounding pad applied. Defibrillator pads applied. Continuous surface ECG, pulse oximetry, and blood pressure were monitored. Procedure was performed under general anesthesia, with anesthesia services.
Both groins were clipped, prepped with Chloraprep, and draped in sterile fashion. Time out was called. Local anesthesia administered. The right and left femoral veins were accessed for catheter placement, using ultrasound guidance (images saved to
record), micro-puncture needle/wire, and modified seldinger technique. 3 sheaths were placed. The following catheters were used:
[ ] Tacticath SE (D/F Curve) ablation catheter
X Viewflex 9Fr ICE catheter
X Inquiry decapolar 6Fr diagnostic catheter
[ ] CRD Hex 6Fr
X FlexCath Contour 10 Fr with PulseSelect PFA Catheter
X Advisor HD Grid Mapping Catheter, SE
[ ] Acuson AcuNav 8 Fr ICE catheter
[ ]Other: [ ]
Intracardiac ultrasound (ICE) was carefully advanced into the right atrium to guide sheath placement over a J-wire, catheter placement, guide trans-septal puncture, identify potential complications, identify anatomic structures and ensure proper
contact between ablation catheter and tissue.
Heparin was given prior to trans-septal puncture. Heparin was given to achieve and maintain a target ACT of 300-400 seconds throughout the procedure.
Trans-septal access was performed under ICE guidance and fluoroscopy. Careful attention was paid to the chronic pacemaker leads in order to avoid them during transseptal. The trans-septal puncture was performed with a SafeSept wire through a
Brockenbrough needle assembly through the steerable sheath. The wire was visualized as it entered the LSPV. The Brockenbrough needle and safe step wire were then removed and the J-wire was advanced into the left superior pulmonary vein as
visualized by intracardiac ultrasound and fluoroscopy. System could not be advanced through thick intra-atrial septum. Dr Viviana Preston then assisted with transseptal. Dr Preston using ICE and fluoroscopy, advanced the J wire into the RSPV. The
system advanced carefully under ICE guidance and fluoroscopy into the LA. The J wire and sheath dilator were removed under negative pressure with the sheath in the midpoint of the left atrium. LA pressure was measured and recorded. ICE review
demonstrated no change to pre-procedure structures, no identified pericardial effusion.
ICE and 3D mapping was performed to identify relevant cardiac structures. A careful 3D map was created to assess for regions of low-voltage and abnormal electrogram signals using HD grid mapping catheter and PulseSelect catheter. Additional mapping
was performed as outlined below.
PulseSelect catheter was advanced over J-wire to the ostium of each vein. Pulmonary vein isolation was performed with ostial and antral lesions in a circumferential manner. Contact was visualized via EAM, ICE, fluoroscopy, and EGM signals.
After accomplishing pulmonary venous isolation, mapping identified additional areas likely to be extra PV contributors to atrial fibrillation. These areas demonstrated patchy low voltage as well as complex fractionated electrograms. These areas can
be sites for the formation of rotors which can drive and maintain atrial fibrillation. These areas are known to be significant contributors to initiation and perpetuation of atrial fibrillation.
Additional energy applications/additional ablation sets targeted extra PV contributors to atrial fibrillation.
Targets for additional PFA ablation included: LA posterior wall targeted with pulsed electric field energy isolating the posterior wall of the left atrium. Posterior wall isolation was performed by anchoring the J-wire within the pulmonary vein and
placing the PulseSelect catheter in contact posterior wall as visualized by aforementioned methods.
After ablation of the posterior wall, targets remained including:
- Inferior LA floor
- Anterior LA roof
- The ridge of tissue between the left atrial appendage and the left sided pulmonary veins (Ligament of Rohan)
These areas were ablated using pulsed electric field energy eliminating the extra PV contributors to atrial fibrillation.
Following completion of ablation lesions, a post-ablation voltage/activation map was performed in atrial pacing. Entrance and exit block were confirmed for each vein and the posterior wall.
Catheter and sheath were removed from the left atrium and post-ablation intracardiac echo evaluation was consistent with pre-ablation with no changes and no pericardial effusion and there is no left atrial thrombus or left ventricle thrombus seen.
Electrophysiology study was performed. Hemostasis was obtained with figure of 8 stitch for each groin and with manual pressure. Protamine was used for reversal.
Estimated Blood Loss
5mL
Complications
None
Fluoroscopy: 24.1 minutes; 145.9 mGy; DAP 17.4
LA Pressure: Pre 4 mmHg
Baseline Intervals:
Rhythm: APVS
AZ: 177 ms
QRS: 106 ms
QT: 391 ms
QTc: 391 ms
A-A: 1000 ms
R-R: 1000 ms
Post-Procedure Intervals:
AZ: 175 ms
QRS: 95 ms
QT: 432 ms
QTc: 434 ms
A-A: 990 ms
R-R: 990 ms
AVWB: 510 ms
AVNERP: 600/450 ms
AERP: 600/250 ms
Recommendations
- Bedrest with straight-leg precautions as ordered
- Admit with anticipate discharge home tomorrow after overnight observation
- Resume home medications as indicated
- Ok to resume anticoagulation tonight if patient and groin sites stable
- Plan for follow-up in office as scheduled
Charlie Luis DO, FACC, FHRS
Clinical Cardiac Electrical Engineering Technologist
cc: Dr Herminia Pang; Dr Ronald Burk
[2025-02-27 13:10] LABS: ACT-LR - POC 329 Seconds (116-155)
[2025-02-27 13:35] LABS: ACT-LR - POC 321 Seconds (116-155)
[2025-02-27 13:50] LABS: ACT-LR - POC 340 Seconds (116-155)
[2025-02-27 14:13] LABS: ACT-LR - POC 384 Seconds (116-155)
[2025-02-27 14:30] LABS: ACT-LR - POC 398 Seconds (116-155)
[2025-02-27 14:35] LABS: ACT-LR - POC 342 Seconds (116-155)
[2025-02-27 14:58] LABS: ACT-LR - POC 141 Seconds (116-155)
[2025-02-27 15:47] LABS: Glucose - Point of Care 143 mg/dl (70-99)
--- NOTE | 2025-02-27 16:06 | CM ---
pt is prev indep, lives alone in a 1 story home with 5 steps to enter. no dc planning needs noted. plan is for dc to home when medically stable.
--- NOTE | 2025-02-27 16:33 | PTCARENOTE ---
Received the patient fro the computer lab aide in her bed. The patient is aaox3. Her vital signs are stable. NSR with occasional A-pacing is noted on the monitor. Her BL groin dressings are c/d/i. She has no complaints of pain or discomfort. I instructed her
on her activity restrictions and expected oob time. Her call miller is within reach.
[2025-02-27 19:42] LABS: Glucose - Point of Care 163 mg/dl (70-99)
[2025-02-27] MEDS: ELIQUIS 5 MG PO (20:24)
[2025-02-27 21:57] LABS: Glucose - Point of Care 260 mg/dl (70-99)
[2025-02-27] MEDS: CRESTOR 40 MG PO (22:19)
--- NOTE | 2025-02-28 00:37 | PTCARENOTE ---
assumed care of patient at the change of shift. AAOx3. [place]. b/l groin sutures removed with no issues. dressing CDI. patient ambulated to the bathroom- steady on her feet. denies any lightheadedness/dizziness. SR on tele with Apacing- 60s-70s. bp
stable. attempted to wean patient off of oxygen. RA- 85-88%. at times 95 on RA. placed patient back on 2L. diminished lung sounds. shallow breathing. denies any sob. reviewed plan of care with patient and verbalized understanding. call miller within
reach. comfort measures provided.
[2025-02-28 03:08] VITALS: BP 103/58
[2025-02-28 04:11] LABS: Hematocrit 33.4 % (37.0-47.0); Hemoglobin 10.9 g/dL (12.0-16.0); Mean Corp Hgb Conc. 32.6 g/dL (33.0-37.0); Mean Corpuscular Volume 83.7 fL (81.0-99.0); Platelet Count 192 10^3/uL (130-400); Red Cell Dist. Width 13.9 % (11.5-14.5)
[2025-02-28 04:33] LABS: Blood Urea Nitrogen 16 mg/dl (7-17); Calcium 9.0 mg/dl (8.4-10.2); Carbon Dioxide 25 mmol/L (22-30); Chloride 105 mmol/L (98-107); Estimated Creatinine Clearance 45 ml/min; Glucose 146 mg/dl (70-99); Magnesium 1.7 mg/dl (1.6-2.3); Potassium 4.3 mmol/L (3.5-5.1); Sodium 136 mmol/L (135-145); eGFR > 60.00
--- NOTE | 2025-02-28 07:05 | W.PN.CARDCBS ---
Addendum entered and electronically signed by Stanley Jay MD 02/28/25 09:18:
Patient seen, interviewed and examined by me.
Well-appearing, no acute distress
Regular rate and rhythm with normal S1 and S2, no S3 no S4. There is a grade 1/6 apical holosystolic murmur and no rubs. PMI is normally placed.
Lungs are clear to auscultation bilaterally without wheezes rales or rhonchi.
Abdomen soft nontender nondistended with normoactive bowel sounds
Extremities show trace pretibial edema bilaterally no clubbing or cyanosis.
Neurologic exam is grossly nonfocal.
status post PVI for symptomatic atrial fibrillation.
She feels well
Telemetry shows no postablation arrhythmias
She remained hemodynamically stable
Groin site without hematoma or bruit, no bleeding.
-Continue Verapamil 120mg daily and Toprol 25mg daily. HR and BP stable.
-Continue Eliquis 5mg BID
-Remains on O2, will get up walking and hopefully will improve
-OK for discharge today, 02/28 as long as O2 stable on RA
-Follow up with Dr. Burk has been arranged.
Original Note:
Today's Communication / Plan
-
Continue Eliquis, verapamil, metoprolol
Appears well post PVI
Follow up arranged
If O2 stable on RA, ok for discharge
Follow up arranged
Impression / Plan
-
Hospital Admissions Clerk: Dr. Burk
Impression:
Persistent atrial fibrillation
s/p PVI 02/28/2025
Chronic OAC with Eliquis
CAD
s/p BMS of LAD 2010
SSS
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
h/o GIB
DM2
HTN
HLD
Remote tobacco abuse
Plan:
-Patient has known persistent atrial fibrillation and underwent PVI 02/28/2025 w/ Dr. Luis.
-Doing well overnight. No complaints this AM. Groin sites stable.
-Remains in SR on review of tele.
-Continue Verapamil 120mg daily and Toprol 25mg daily. HR and BP stable.
-Continue Eliquis 5mg BID
-Remains on O2, will get up walking and hopefully will improve
-OK for discharge today, 02/28 as long as O2 stable on RA
-Follow up with Dr. Burk has been arranged.
Progress Note - Hospital Admissions Clerk
Subjective
Date of Service: February 28, 2025
No complaints.
Objective
Labs:
02/28/25 03:14
02/28/25 03:14
Labs
Hgb 10.9 g/dL (12.0-16.0) L 02/28/25 03:14
Hct 33.4 % (37.0-47.0) L 02/28/25 03:14
Plt Count 192 10^3/uL (130-400) 02/28/25 03:14
PT 14.7 Sec (11.4-14.6) H 02/10/25 11:14
INR 1.14 02/10/25 11:14
Sodium 136 mmol/L (135-145) 02/28/25 03:14
Potassium 4.3 mmol/L (3.5-5.1) 02/28/25 03:14
BUN 16 mg/dl (7-17) 02/28/25 03:14
Creatinine 0.7 mg/dL (0.6-1.0) 02/28/25 03:14
Glucose 146 mg/dl (70-99) H 02/28/25 03:14
Vital Signs and I&O:
Vital Signs
Temp Pulse Resp BP Pulse Ox
98.2 F 62 18 103/58 96
02/28/25 03:23 02/28/25 06:00 02/28/25 03:23 02/28/25 03:08 02/28/25 03:23
Vital Signs
Temp Pulse Resp BP Pulse Ox
98.2 F 62 18 103/58 96
02/28/25 03:23 02/28/25 06:00 02/28/25 03:23 02/28/25 03:08 02/28/25 03:23
Intake & Output
02/26/25 02/27/25 02/28/25 03/01/25
06:59 06:59 06:59 06:59
Intake Total 1350 / 1350
Balance 1350 / 1350
Physical Exam
Physical Exam
GEN: No distress, awake, alert, oriented x3
HEENT: supple, anicteric, mmm
LUNGS: CTA b/l, no wheezes/rales
CV: Reg, S1/S2, no murmur
EXT: No clubbing, cyanosis, or edema
NEURO: Gross non-focal
SKIN: Warm, dry, no rash
[2025-02-28] MEDS: ELIQUIS 5 MG PO (07:22)
[2025-02-28] MEDS: PROTONIX 40 MG PO (07:22)
[2025-02-28] MEDS: TOPROL XL 25 MG PO (07:22)
[2025-02-28] MEDS: CALAN EXTENDED RELEASE 120 MG PO (07:28)
[2025-02-28] MEDS: GLUCOPHAGE 1000 MG PO (07:28)
--- NOTE | 2025-02-28 07:32 | W.DS.TRANS ---
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
-
Discharge Instructions:
Sleep Apnea Risk Intermediate
Discharge Diagnosis/Procedures Atrial fibrillation post ablation
Diet Low Cholesterol,Diabetic, Carb Controlled
Driving Restrictions No driving for 24 hours
Instructions:
Stand-Alone Forms: DC Instructions- Cath/EP Lab
Changes to Home Medications: No
Discharge Medications:
DC Medications w/original date entered in [facility]
acetaminophen 325 mg tablet (Tylenol) 650 mg PO DAILYPRN PRN MILD PAIN 03/06/24
cholecalciferol (vitamin D3) 25 mcg (1,000 unit) tablet (Vitamin D3) 25 mcg PO DAILY Supplement 03/06/24
ferrous sulfate 325 mg (65 mg iron) tablet 325 mg PO DAILY Supplement 03/06/24
rosuvastatin 40 mg tablet (Crestor) 40 mg PO HS 03/06/24
vitamin E 268 mg (400 unit) capsule 268 mg PO DAILY 03/06/24
metoprolol succinate 25 mg tablet,extended release 24 hr 25 mg PO DAILY #30 tabs 03/07/24
apixaban 5 mg tablet (Eliquis) 5 mg PO BID 12/29/24
metformin 1,000 mg tablet 1,000 mg PO DAILY 12/29/24
verapamil 120 mg tablet,extended release 120 mg PO DAILY 12/29/24
omeprazole 40 mg capsule,delayed release 40 mg PO DAILY 02/27/25
Home Medication Changes
Pending Results: No
[2025-02-28 07:33] VITALS: BP 98/47
[2025-02-28 08:05] VITALS: BMI 29.4
[2025-02-28 08:56] LABS: Glucose - Point of Care 135 mg/dl (70-99)
--- NOTE | 2025-02-28 09:25 | PTCARENOTE ---
Pt received this am with no c/o of any pain sob. O2 removed, sat 92 - 95%. Pt ambulated in the hallway with the nurse, gait steady. OOB in the chair for breakfast and tolerating well. SRm rate in70's to 80's.
[2025-02-28 10:50] LABS: Glycohemoglobin (HgbA1c) 7.0 % (4.0-5.9)
[2025-02-28 12:41] VITALS: BP 133/56
[2025-02-28 13:09] LABS: Glucose - Point of Care 140 mg/dl (70-99)
--- NOTE | 2025-02-28 16:08 | PTCARENOTE ---
pt discharged to home with her daughter. Discharged instructions given and reviewed with good understanding and all questions answered.
[2025-03-02 08:15] LABS: ACT-LR - POC > 397 Seconds (116-155)
== END 2025-02-28 16:15 | disposition home or self-care (01) ==
LOC: CATH 07:01
PROVIDERS: Nurse Practitioner Adult Health; ATTENDING PHYSICIAN Internal Medicine Cardiovascular Disease; FAMILY PHYSICIAN Student in an Organized Health Care Education/Training Program; OTHER PHYSICIAN Internal Medicine Cardiovascular Disease
DX: I48.19 Other persistent atrial fibrillation (principal); I49.5 Sick sinus syndrome; E11.29 Type 2 diabetes mellitus with other diabetic kidney complication; E78.5 Hyperlipidemia, unspecified; Z87.891 Personal history of nicotine dependence; H91.93 Unspecified hearing loss, bilateral; I08.1 Rheumatic disorders of both mitral and tricuspid valves; I10 Essential (primary) hypertension; D50.9 Iron deficiency anemia, unspecified; I25.10 Atherosclerotic heart disease of native coronary artery without angina pectoris; K44.9 Diaphragmatic hernia without obstruction or gangrene; K21.9 Gastro-esophageal reflux disease without esophagitis; M19.90 Unspecified osteoarthritis, unspecified site; M81.0 Age-related osteoporosis without current pathological fracture; Z79.01 Long term (current) use of anticoagulants; Z79.84 Long term (current) use of oral hypoglycemic drugs; Z79.899 Other long term (current) drug therapy; Z86.72 Personal history of thrombophlebitis; Z87.440 Personal history of urinary (tract) infections; Z88.5 Allergy status to narcotic agent; Z90.710 Acquired absence of both cervix and uterus; Z95.5 Presence of coronary angioplasty implant and graft; Z96.652 Presence of left artificial knee joint; Z98.41 Cataract extraction status, right eye; Z98.42 Cataract extraction status, left eye
CPT/HCPCS: 93312; 93320; 93325; C1733; C1732; C1894; C1769; C1766; 36415; 80048; 80053; 82962; 83036; 83735; 85025; 85027; 85347; 85610; 86850; 86900; 86901; 93005; 93656; 93657